=== PATIENT | female | born 1980 | race Caucasian/White ===

== ENCOUNTER 2020-10-28 07:17 | Inpatient (IN) | payer OTHER, SELFPAY ==
[2020-10-28] VITALS (14 sets, daily range): BP systolic 111–140; BP diastolic 73–93; PULSE 78–109; RESP 12–18; TEMP 35.9–36.9; O2SAT 99–100; BMI 21.7
--- NOTE | ~2020-10-28 | CT_ITS ---
EXAMINATION: CT ABDOMEN AND PELVIS WITH CONTRAST CLINICAL INFORMATION: Right lower quadrant pain. Evaluate for appendicitis. COMPARISON: None TECHNIQUE: Multidetector volumetric images were obtained from the superior aspect of the liver through the pubic symphysis following administration 85 mL of Omnipaque 350 intravenous contrast. Sagittal and coronal reformatted images were obtained on the technologist's workstation. Oral contrast: Yes This CT examination was performed using dose optimization techniques as appropriate, variously including the following: *Automated exposure control *Adjustment of mA and/or kV according to patient size (this includes techniques or standardized protocols for targeted exams where dose is matched to indication/reason for exam; i.e. extremities or head) *Use of iterative reconstruction technique DLP: 445 mGy-cm FINDINGS: LUNG BASES: The visualized lung bases are unremarkable. LIVER, GALLBLADDER, AND BILIARY TREE: The liver is normal in size, shape, and attenuation. There is a small 4 mm low-attenuation lesion high in the dome of the right lobe of the liver axial image 18 series 3. This is difficult to characterize due to small size but may represent a small cyst. No biliary ductal dilatation is present. The gallbladder is unremarkable with no evidence of radiopaque gallstones, gallbladder wall thickening, or obvious pericholecystic inflammatory changes. PANCREAS: Unremarkable. SPLEEN: Unremarkable. ADRENAL GLANDS: Unremarkable. KIDNEYS AND URETERS: The kidneys are normal in size, shape, and attenuation. No hydronephrosis, hydroureter, or calculi seen. No perinephric stranding. BLADDER: Unremarkable. GASTROINTESTINAL TRACT: The small and large bowel are unremarkable. The appendix is dilated measuring up to 10 mm and filled with fluid. There is stranding of the periappendiceal fat and trace ascites around the appendix. CT appearance is compatible with appendicitis. No evidence of perforation or abscess is seen. ABDOMINAL WALL: No significant hernia is appreciated. LYMPH NODES: Normal. VASCULAR: Unremarkable. PELVIC VISCERA: Unremarkable. There is trace fluid in the pelvis. OSSEOUS STRUCTURES: Unremarkable. CT/CT abdomen pelvis w con IMPRESSION: Acute appendicitis. Small amount of fluid in the pelvis. Findings were communicated to Dr. Hampton by telephone on 10/28/2020 at 11:00 AM.
--- NOTE | 2020-10-28 07:28 | ED_ITS ---
HPI - Abdominal Pain General Chief Complaint: Abdominal Pain Stated Complaint: ABD PAIN Time Seen by Provider: 10/28/20 07:20 Source: patient Mode of arrival: ambulatory Limitations: no limitations History of Present Illness HPI narrative: 40 yo female otherwise healthy woke up with chills, stomach cramps, diarrhea and nausea at 3am, notes the only thing unusual was she ate a poke bowl with fish, no prior episodes of this, no one else is sick at home MD elicited complaint: abdominal pain Pertinent past history: none Onset (ago): hour(s) (several ) Pain Consistency: constant Location: diffuse Severity: moderate Quality: cramping Radiation: none Migration to: no migration Exacerbating factors: movement Relieving factors: nothing Context: possible food poisoning Associated symptoms: nausea, diarrhea and chills Related Data Allergies Allergy/AdvReac Type Severity Reaction Status Date / Time No Known Allergies Allergy Verified 10/28/20 07:31 Review of Systems Review of Systems Constitutional : No Weight loss, No Fever, No Chills ENT/Mouth : No sore throat, No Rhinorrhea Eyes: No Swelling, No Redness Cardiovascular : No Chest Pain, No SOB, NoEdema Respiratory : No Cough, No Sputum, No Wheezing Gastrointestinal : Positive Nausea, no Vomiting, positive Diarrhea, positive abdominal Pain, No Hematochezia, No Melena Genitourinary : No Dysuria, No Urinary Frequency, No Hematuria, No Urgency Musculoskeletal : No joint pain, No Myalgias, No Joint Swelling Skin : No Skin Lesions, No rash Neuro : No Weakness, No Numbness, No Dizziness, No Headache Psych : No Anxiety/Panic, No Depression Heme/Lymph: No Bruising, No Lymphadenopathy Endocrine : No Polyuria, No Polydipsia All other systems reviewed and are negative. Physical Exam Vital Signs: Vital Signs: Last Vital Signs Temp 98.4 F 10/28/20 07:23 Pulse 78 10/28/20 07:23 Resp 18 10/28/20 07:23 BP 140/93 H 10/28/20 07:23 Pulse Ox 100 10/28/20 07:23 Body Mass Index 21.7 Appearance: Alert. Oriented X3. anxious, mild acute distress. Eyes: Pupils equal, round and reactive to light. ENT: Pharynx normal. Neck: Normal inspection. Neck supple. CVS: Normal heart rate and rhythm. Pulses normal. Respiratory: No respiratory distress. Breath sounds normal. Abdomen: Soft and moderate diffuse ttp Skin: Skin warm and dry. pale skin color. Normal skin turgor. Extremities: No lower extremity edema. No calf ttp Neuro: Oriented X 3. No motor deficit. No sensory deficit. Course Course Course Narrative: on recheck her nausea is very improved, no diarrhea on her repeat abdominal exam she seems to have more RLQ pain, CT scan to r/o appendicitis at this time + appendicitis Dr. Chavez to admit MDM - Abdominal Pain MDM Narrative Medical decision making narrative: 40 yo female with no PMH here with nausea abd ominal pain and diarrhea after eating a poke bowl yesterday, no localizing ttp at this time will need labs, IVF, IV zofran/Toradol, benadryl in case of histamine response suspect food toxicity or viral infection Lab Data Result diagrams: 10/28/20 07:44 10/28/20 07:44 Labs: Lab Results 10/28/20 10/28/20 10/28/20 Range/Units 07:44 07:44 07:44 WBC 14.0 H (4.8-10.8) X10*3/uL RBC 4.52 (4.20-5.50) X10*6/uL Hgb 13.4 (12.0-16.0) g/dl Hct 39.2 (37-47) % MCV 86.7 (80-98) fL MCH 29.6 (27.0-33.0) pg MCHC 34.2 (31.0-35.0) g/dl RDW 13.1 (11.0-16.0) % Plt Count 243 (160-400) X10*3/uL MPV 9.8 (9.4-12.3) fL Immature Gran % (Auto) 0.2 (0.0-0.4) % Neut % (Auto) 78.9 H (45-73) % Lymph % (Auto) 15.4 L (20-40) % [place] % (Auto) 4.9 (2-11) % Eos % (Auto) 0.2 (0-4) % Baso % (Auto) 0.4 (0-2) % Lymph # (Auto) 2.2 (1.2-4.9) X10*3/uL [place] # (Auto) 0.7 (0.1-1.2) X10*3/uL Eos # (Auto) 0.0 (0.0-0.4) X10*3/uL Baso # (Auto) 0.1 (0.0-0.2) X10*3/uL Abs Immat Gran (auto) 0.03 (0.00-0.03) X10*3/uL Absolute Neuts (auto) 11.1 H (2.0-8.3) X10*3/uL Absolute Nucleated RBC 0.000 (0.0-0.012) X10*3/uL Nucleated RBC % (auto) 0.0 (0.0-0.2) /100WBC Hold Blue Top SEE NOTE Sodium Cancelled Potassium Cancelled Chloride Cancelled Carbon Dioxide Cancelled Anion Gap Cancelled BUN Cancelled Creatinine Cancelled Estim Creat Clear Calc Cancelled Estimated GFR Cancelled Random Glucose Cancelled Calcium Cancelled Magnesium Cancelled Total Bilirubin Cancelled Direct Bilirubin Cancelled AST Cancelled ALT Cancelled Alkaline Phosphatase Cancelled Total Protein Cancelled Albumin Cancelled Lipase (8-78) U/L Urine Color Urine Appearance Urine pH (5.0-8.0) Ur Specific [place] (1.005-1.025) Urine Protein (NEG-TRACE) MG/DL Urine Glucose (UA) (NEG) MG/DL Urine Ketones (NEG) MG/DL Urine Blood (NEG) Urine Nitrite (NEG) Ur Leukocyte Esterase (NEG) Urine RBC (0) /HPF Urine WBC (0-4) /HPF Ur Squamous Epith Cells /LPF Urine Bacteria /LPF Urine Test (NEGATIVE) COVID-19 (JANIE) (Negative) COVID-19 Clin Com 10/28/20 10/28/20 10/28/20 Range/Units 07:44 07:59 07:59 WBC (4.8-10.8) X10*3/uL RBC (4.20-5.50) X10*6/uL Hgb (12.0-16.0) g/dl Hct (37-47) % MCV (80-98) fL MCH (27.0-33.0) pg MCHC (31.0-35.0) g/dl RDW (11.0-16.0) % Plt Count (160-400) X10*3/uL MPV (9.4-12.3) fL Immature Gran % (Auto) (0.0-0.4) % Neut % (Auto) (45-73) % Lymph % (Auto) (20-40) % [place] % (Auto) (2-11) % Eos % (Auto) (0-4) % Baso % (Auto) (0-2) % Lymph # (Auto) (1.2-4.9) X10*3/uL [place] # (Auto) (0.1-1.2) X10*3/uL Eos # (Auto) (0.0-0.4) X10*3/uL Baso # (Auto) (0.0-0.2) X10*3/uL Abs Immat Gran (auto) (0.00-0.03) X10*3/uL Absolute Neuts (auto) (2.0-8.3) X10*3/uL Absolute Nucleated RBC (0.0-0.012) X10*3/uL Nucleated RBC % (auto) (0.0-0.2) /100WBC Hold Blue Top Sodium 138 Potassium 4.6 Chloride 106 Carbon Dioxide 20 L Anion Gap 17 BUN 9 Creatinine 0.70 Estim Creat Clear Calc 109.9 Estimated GFR > 60 Random Glucose 93 Calcium 9.0 Magnesium 1.8 Total Bilirubin 0.6 Direct Bilirubin < 0.2 AST 19 ALT 11 Alkaline Phosphatase 51 Total Protein 7.7 Albumin 4.5 Lipase 17 (8-78) U/L Urine Color YELLOW Urine Appearance CLEAR Urine pH 5.5 (5.0-8.0) Ur Specific [place] >= 1.030 H (1.005-1.025) Urine Protein NEG (NEG-TRACE) MG/DL Urine Glucose (UA) NEG (NEG) MG/DL Urine Ketones >=80 (NEG) MG/DL Urine Blood 1+ H (NEG) Urine Nitrite NEG (NEG) Ur Leukocyte Esterase NEG (NEG) Urine RBC 1-4 (0) /HPF Urine WBC 0 (0-4) /HPF Ur Squamous Epith Cells 2+ /LPF Urine Bacteria TRACE /LPF Urine Test NEGATIVE (NEGATIVE) COVID-19 (JANIE) Negative (Negative) COVID-19 Clin Com See Note Critical Care Time Critical Care Time Critical Care Time: Yes Total Critical Care Time: 35 Attestation: medical consult, IV abx, admit for appendicitis I attest to this time spent taking care of the patient Discharge Plan Discharge Clinical Impression: Acute appendicitis Qualifiers: Acute appendicitis type: with localized peritonitis Appendicitis gangrene presence: without gangrene Appendicitis perforation presence: without perforation Appendicitis abscess presence: without abscess Qualified Code(s): K35.30 - Acute appendicitis with localized peritonitis, without perforation or gangrene Patient Disposition: Admitted As Inpatient [facility] [place] Past Medical History Attestation statement: The following information was validated with the patient. Medical History No active medical problems Social History Social History (Updated 10/28/20 @ 07:40 by Hallie Hampton DO) Alcohol intake: never Smoking Status: Never smoker Use of substances other than those prescribed or required for medical reasons: No Advance Directives: No Advance Directives Information Provided: Yes
[2020-10-28 07:48] LABS: MANUAL DIFF FLAG NO
[2020-10-28 07:49] LABS: Basophils Absolute Auto 0.1 X10*3/uL (0.0-0.2); Basophils Percent Auto 0.4 % (0-2); Eosinophils Percent Auto 0.2 % (0-4); Hematocrit 39.2 % (37-47); Hemoglobin 13.4 g/dl (12.0-16.0); Imm Gran Abs Auto 0.03 X10*3/uL (0.00-0.03); Imm Gran Pct Auto 0.2 % (0.0-0.4); Lymphocytes Absolute Auto 2.2 X10*3/uL (1.2-4.9); Lymphocytes Percent Auto 15.4 % (20-40); Mean Corpuscular HGB Conc 34.2 g/dl (31.0-35.0); Mean Corpuscular Hemoglobin 29.6 pg (27.0-33.0); Mean Corpuscular Volume 86.7 fL (80-98); Mean Platelet Volume 9.8 fL (9.4-12.3); Monocytes Absolute Auto 0.7 X10*3/uL (0.1-1.2); Monocytes Percent Auto 4.9 % (2-11); Neutrophils Absolute Auto 11.1 X10*3/uL (2.0-8.3); Neutrophils Percent Auto 78.9 % (45-73); Platelet Count 243 X10*3/uL (160-400); Red Blood Count 4.52 X10*6/uL (4.20-5.50); Red Cell Distribution Width 13.1 % (11.0-16.0)
[2020-10-28] MEDS: diphenhydrAMINE HCL 50 MG/ML VIAL 25 MG IVPUSH (08:01)
[2020-10-28] MEDS: Ketorolac Tromethamine 30 MG/ML VIAL IVPUSH (08:01)
[2020-10-28] MEDS: 0.9 % Sodium Chloride 1,000 ML 999 ML IVCONT (08:01)
[2020-10-28] MEDS: ondansetron HCL 4 MG/2 ML VIAL IVPUSH (08:01)
[2020-10-28 08:07] LABS: Glucose Urine UA NEG (NEG); Leukocyte Esterase Urine NEG (NEG); Nitrite Urine NEG (NEG); PH 5.5 (5.0-8.0); Specific Gravity - Urine >= 1.030 (1.005-1.025); Urine Blood 1+ (NEG); Urine Ketones >=80 MG/DL (NEG); Urine Protein NEG (NEG-TRACE)
[2020-10-28 08:16] LABS: Appearance Urine CLEAR; Color Urine YELLOW
[2020-10-28 08:17] LABS: Bacteria Urine TRACE /LPF; Squamous Epithelial Cell Urine 2+ /LPF; WBC Urine 0 /HPF (0-4)
[2020-10-28 08:24] LABS: COVID-19 Test Negative (Negative)
[2020-10-28 08:28] LABS: Alanine Aminotransferase 11 U/L (0-31); Albumin Level 4.5 g/dL (3.5-5.0); Alkaline Phosphatase 51 U/L (39-117); Anion Gap 17 (12-20); Aspartate Amino Transferase 19 U/L (5-31); Bilirubin Direct < 0.2 mg/dL (0.0-0.5); Bilirubin Total 0.6 mg/dL (0.0-1.0); Blood Urea Nitrogen 9 mg/dL (9-16); Carbon Dioxide 20 mmol/L (22-29); Chloride 106 mmol/L (96-108); Creatinine Clr Calc Pharmacy 109.9; Estimated Glomerular Filt Rate > 60; Glucose Random 93 mg/dL (60-115); Lipase 17 U/L (8-78); Magnesium 1.8 mg/dL (1.6-2.6); Potassium 4.6 mmol/L (3.3-5.1); Sodium 138 mmol/L (135-145); Total Protein 7.7 g/dL (6.5-8.0)
--- NOTE | 2020-10-28 08:40 | PC.NURSE ---
Pt reports moderate relief of symptoms with treatments provided thus far, c/o 10/17 abdominal pain. States her nausea is fully relieved.
[2020-10-28 09:00] LABS: Urine Pregnancy NEGATIVE (NEGATIVE)
[2020-10-28 09:01] LABS: UPreg QC Valid YES
[2020-10-28] MEDS: iohexoL 350 MG/ML 100 ML INFUS..BTL IV (10:41)
--- NOTE | 2020-10-28 11:30 | P.HPGS_ITS ---
History of Present Illness History of Present Illness Date of Service: 10/28/20 Chief complaint: ABD PAIN Narrative: Brigette Dejesus is a 40 year old female presenting with complaints of abdominal pain in the right lower quadrant which began yesterday. She describes the pain as cramping associated with chills and diarrhea. Pain became more severe approximately 03:00 this morning and she subsequently presented to the emergency department. She denies a previous history of similar abdominal pain. She notes the pain increases when pressure is applied to the abdomen and then released. Her past history is significant for polycystic ovary disease. She denies previous abdominal surgeries. Workup in the [place] [address] of the abdomen and pelvis revealed thickening of the appendix with some periappendiceal inflammation and fluid. There is no evidence of perforation. Review of Systems Constitutional: Constitutional: Reports chills, Denies fever(s), Denies headache(s) and Reports poor appetite ENT: Denies dizziness and Denies headache(s) Cardiovascular: Cardiovascular: Denies chest pain, Denies rapid heart rate, Denies palpitations and Denies slow heart rate Respiratory: Respiratory: Denies chest congestion, Denies cough, Denies pain on inspiration and Denies wheezing Gastrointestinal: Gastrointestinal: Reports abdominal pain, Denies bloating, Reports change in stool character, Denies constipation, Reports diarrhea, Denies nausea, Denies vomiting and Denies hematemesis Musculoskeletal: Musculoskeletal: Denies back pain, Denies arthralgias, Denies joint swelling and Denies numbness Integumentary/Breasts: Skin/Breast: Denies change in pigmentation, Denies erythema and Denies rash Neurologic: Denies confusion, Denies dizziness, Denies headache(s) and Denies numbness Psychiatric: Psychiatric: Denies anxiety, Denies confusion and Denies depression Endocrine: Endocrine: Denies palpitations Hematologic/Lymphatic: Hematologic/Lymphatic: Denies easy bleeding, Denies easy bruising and Denies lymphadenopathy Allergic/Immunologic: Allergic/Immunologic: Denies wheezing PMFSH Past Medical History Medical History (Updated 10/28/20 @ 11:32 by Roosevelt Chavez MD) No active medical problems Polycystic ovary disease Social History Social History Alcohol intake: never Smoking Status: Never smoker Use of substances other than those prescribed or required for medical reasons: No Advance Directives: No Advance Directives Information Provided: Yes Meds Allergies Allergy/AdvReac Type Severity Reaction Status Date / Time No Known Allergies Allergy Verified 10/28/20 07:31 Active Medications: Current Medications Generic Name Dose Route Start Last Admin Trade Name Freq PRN Reason Stop Dose Admin Piperacillin Sod/Tazobactam 50 mls @ 100 mls/hr 10/28/20 11:01 Sod 3.375 gm/ Sodium Chloride IV 10/28/20 11:30 ONCE ONE Physical Exam Vital Signs: Vital Signs: Last Vital Signs Temp 98.4 F 10/28/20 07:23 Pulse 78 10/28/20 07:23 Resp 18 10/28/20 07:23 BP 140/93 H 10/28/20 07:23 Pulse Ox 100 10/28/20 07:23 Body Mass Index 21.7 Const: General: cooperative, healthy appearing, comfortable, no acute distress, well developed, alert, awake and Physically active; No confusion Orientation/consciousness: No confusion HENMT: Head: Yes normocephalic and Yes atraumatic Eyes: Sclerae: sclerae normal EOM: EOMs intact bilaterally Resp: Effort & Inspection: normal respiratory effort, no stridor and not tachypneic Auscultation: no wheezes Cardio: Jugular venous distension: no JVD Rate: regular rate Rhythm: regular rhythm GI: Inspection: Yes normal to inspection Palpation (GI): Soft to palpation and Tenderness to palpation present (GI) in the RLQ, Rey's sign positive and with rebound tenderness Skin: General skin exam: no rashes or lesions noted and dry skin Neuro: General: No confusion Extrem: General: Yes no clubbing, cyanosis or edema Results Results Labs: Short CBC 10/28/20 Range/Units 07:44 WBC 14.0 H (4.8-10.8) X10*3/uL Hgb 13.4 (12.0-16.0) g/dl Hct 39.2 (37-47) % Plt Count 243 (160-400) X10*3/uL BMP 10/28/20 10/28/20 07:44 07:44 Sodium Cancelled 138 Potassium Cancelled 4.6 Chloride Cancelled 106 Carbon Dioxide Cancelled 20 L BUN Cancelled 9 Creatinine Cancelled 0.70 Calcium Cancelled 9.0 Liver Function 10/28/20 10/28/20 Range/Units 07:44 07:44 Total Bilirubin Cancelled 0.6 Direct Bilirubin Cancelled < 0.2 AST Cancelled 19 ALT Cancelled 11 Alkaline Phosphatase Cancelled 51 Albumin Cancelled 4.5 Urine 10/28/20 Range/Units 07:59 Urine Color YELLOW Urine Appearance CLEAR Urine pH 5.5 (5.0-8.0) Ur Specific [place] >= 1.030 H (1.005-1.025) Urine Protein NEG (NEG-TRACE) MG/DL Urine Glucose (UA) NEG (NEG) MG/DL Urine Test NEGATIVE (NEGATIVE) Assessment and Plan (1) Acute appendicitis: Qualifiers: Acute appendicitis type: with localized peritonitis Appendicitis abscess presence: without abscess Appendicitis gangrene presence: without gangrene Appendicitis perforation presence: without perforation Qualified Code(s): K35.30 - Acute appendicitis with localized peritonitis, without perfora tion or gangrene Status: Acute 40-year-old female patient presenting with complaints of abdominal pain in the right lower quadrant associated with abdominal cramping, chills, and diarrhea. [place] [address] findings consistent with acute appendicitis. On examination the patient is tender in the right lower quadrant with rebound tenderness. Findings are suggestive of acute appendicitis without an abscess. We discussed treatment with IV antibiotics verses laparoscopic appendectomy. After discussion with the patient and her regarding the procedure, risks, and alternatives, she consents to the laparoscopic or possible open appendectomy. She will be added onto the operative schedule for today.
[2020-10-28] MEDS: Piperacillin Sodium/Tazobactam 3.375 GM in 0.9 % Sodium Chloride 50 ML IV (11:32)
--- NOTE | 2020-10-28 11:51 | MHC.SHP ---
Pre-Procedural Eval Section A The patient is an INPATIENT: No Changes since office visit: Yes Patient answered all questions; No Cold of Flu in the past 2 weeks, No New Medical Problems and No Changes in Medication The History & Physical has been completed within 30 days and I have reviewed it.: Yes Section B Chief Complaint: ABD PAIN Allergies: Allergies Allergy/AdvReac Type Severity Reaction Status Date / Time No Known Allergies Allergy Verified 10/28/20 07:31 Plan Diagnosis/Plan: Unchanged I have reviewed the history and physical and performed a pertinent physical examination on my patient. No changes have occurred unless specified.
[2020-10-28] MEDS: Lactated Ringers 1,000 ML 100 ML IVCONT ×2 (12:07→16:35)
--- NOTE | 2020-10-28 12:15 | PC.NURSE ---
Report given to OR nurse. Pt ready for transport.
--- NOTE | 2020-10-28 13:09 | HO.ANESPROP2 ---
[facility] Active Problems Active Problems: All Active Problems (Updated 10/28/20 @ 11:32 by Roosevelt Chavez MD) Acute appendicitis (Acute) Past Medical History Medical History No active medical problems Polycystic ovary disease Social History Social History Alcohol intake: never Smoking Status: Never smoker Use of substances other than those prescribed or required for medical reasons: No Advance Directives: No Advance Directives Information Provided: Yes Meds Allergies Allergy/AdvReac Type Severity Reaction Status Date / Time No Known Allergies Allergy Verified 10/28/20 07:31 Active Medications: Current Medications Generic Name Dose Route Start Last Admin Trade Name Freq PRN Reason Stop Dose Admin Lactated Ringer's 1,000 mls @ 100 mls/hr 10/28/20 12:00 10/28/20 12:07 Lr IVCONT 100 mls/hr .Q10H JAMES Administration Exam Exam Date and Time: October 28, 2020 1309 Height,Weight and Vital Signs: Height 5 ft 8 in Weight 65 kg Last Vital Signs Temp 98.4 F 10/28/20 07:23 Pulse 95 10/28/20 11:32 Resp 16 10/28/20 11:32 BP 119/84 10/28/20 11:32 Pulse Ox 99 10/28/20 11:32 Pertinent Lab Results Pertinent Lab Results: Laboratory Tests 10/28/20 10/28/20 10/28/20 07:44 07:44 07:44 WBC 14.0 H RBC 4.52 Hgb 13.4 Hct 39.2 MCV 86.7 MCH 29.6 MCHC 34.2 RDW 13.1 Plt Count 243 MPV 9.8 Immature Gran % (Auto) 0.2 Neut % (Auto) 78.9 H Lymph % (Auto) 15.4 L [place] % (Auto) 4.9 Eos % (Auto) 0.2 Baso % (Auto) 0.4 Lymph # (Auto) 2.2 [place] # (Auto) 0.7 Eos # (Auto) 0.0 Baso # (Auto) 0.1 Abs Immat Gran (auto) 0.03 Absolute Neuts (auto) 11.1 H Absolute Nucleated RBC 0.000 Nucleated RBC % (auto) 0.0 Hold Blue Top SEE NOTE Sodium Cancelled Potassium Cancelled Chloride Cancelled Carbon Dioxide Cancelled Anion Gap Cancelled BUN Cancelled Creatinine Cancelled Estim Creat Clear Calc Cancelled Estimated GFR Cancelled Random Glucose Cancelled Calcium Cancelled Magnesium Cancelled Total Bilirubin Cancelled Direct Bilirubin Cancelled AST Cancelled ALT Cancelled Alkaline Phosphatase Cancelled Total Protein Cancelled Albumin Cancelled Lipase Urine Color Urine Appearance Urine pH Ur Specific [place] Urine Protein Urine Glucose (UA) Urine Ketones Urine Blood Urine Nitrite Ur Leukocyte Esterase Urine RBC Urine WBC Ur Squamous Epith Cells Urine Bacteria Urine Test COVID-19 (JANIE) COVID-19 Eterniam Com 10/28/20 10/28/20 10/28/20 07:44 07:59 07:59 WBC RBC Hgb Hct MCV MCH MCHC RDW Plt Count MPV Immature Gran % (Auto) Neut % (Auto) Lymph % (Auto) [place] % (Auto) Eos % (Auto) Baso % (Auto) Lymph # (Auto) [place] # (Auto) Eos # (Auto) Baso # (Auto) Abs Immat Gran (auto) Absolute Neuts (auto) Absolute Nucleated RBC Nucleated RBC % (auto) Hold Blue Top Sodium 138 Potassium 4.6 Chloride 106 Carbon Dioxide 20 L Anion Gap 17 BUN 9 Creatinine 0.70 Estim Creat Clear Calc 109.9 Estimated GFR > 60 Random Glucose 93 Calcium 9.0 Magnesium 1.8 Total Bilirubin 0.6 Direct Bilirubin < 0.2 AST 19 ALT 11 Alkaline Phosphatase 51 Total Protein 7.7 Albumin 4.5 Lipase 17 Urine Color YELLOW Urine Appearance CLEAR Urine pH 5.5 Ur Specific [place] >= 1.030 H Urine Protein NEG Urine Glucose (UA) NEG Urine Ketones >=80 Urine Blood 1+ H Urine Nitrite NEG Ur Leukocyte Esterase NEG Urine RBC 1-4 Urine WBC 0 Ur Squamous Epith Cells 2+ Urine Bacteria TRACE Urine Test NEGATIVE COVID-19 (JANIE) Negative COVID-19 Clin Com See Note Airway Mallampati Class: I TM Dist: >3cm Neck ROM: Full
--- NOTE | 2020-10-28 13:28 | P.OP_ITS ---
Operative Note Operative Note Date of Service: 10/28/20 Narrative: Preoperative diagnosis: Acute appendicitis Postoperative diagnosis: Same Procedure: Laparoscopic appendectomy Surgeon: Roosevelt Chavez MD Thermoscrew Operator: none Anesthesia: General endotracheal Indications for procedure: 40-year-old female patient presenting with complaints of abdominal pain in the right lower quadrant found to have an elevated WBC of 14,[address] which revealed a thickened appendix with inflam matory changes surrounding it suggestive of acute appendicitis. Operative findings: Mildly inflamed appendix with no evidence of perforation or abscess formation Specimen: Appendix Estimated blood loss: 5 Complications: None Procedure details: Patient was brought to the OR and placed in a supine position. After administering general anesthesia the patient's abdomen was prepped with ChloraPrep and draped in a sterile fashion. A surgical time-out was called and consent confirmed. Patient received preoperative antibiotics and Venodyne boots were in place. Local anesthesia consisting of 0.75% Sensorcaine with epinephrine was infiltrated in periumbilical region. A 5 mm incision was made below the umbilicus and carried down through subcutaneous tissue. A Veress needle was then inserted while elevating abdominal cavity with towel clips. After a positive drop test the abdomen was insufflated to a pressure of 15 mm of mercury. The Veress needle was removed and a 5 mm trocar inserted. The camera was then inserted in the abdomen explored. A 2nd 5 mm trocars placed in the lower midline. A 12 mm trocar was then placed in the left lower quadrant. The patient was then placed in a Trendelenburg position and rotated to the left. The appendix was identified in the right lower quadrant and brought up using blunt dissecting clamps. The mesentery of the appendix was then divided using the LigaSure. The appendiceal artery was cauterized and divided using the LigaSure. Dissection was continued down to the base of the cecum. An Endo-MAGALI stapler with a purple reload was then used to divide the appendix at the base with the cecum. The appendix was then placed in Endo-Catch bag and brought out through the left lower quadrant incision. The abdomen was then irrigated with saline solution and suctioned dry. Wounds were checked for hemostasis. CO2 was then evacuated from the abdominal cavity and all trocars removed. Fascia was closed in the left lower quadrant incision using a [id number] 0 Polysorb suture. Skin was closed at all incisions using a subcuticular 4-0 Polysorb suture. Steri-Strips 2 x 2 gauze and Tegaderm were then applied. The patient tolerated the procedure well. Sponge, instrument, needle counts reported as correct. The patient was transferred to PACU in stable condition.
[2020-10-28] MEDS: fentaNYL citrate/PF 100 MCG/2 ML VIAL 50 MCG IVPUSH (13:45)
[2020-10-28] MEDS: oxyCODONE HCl Immed Release 5 MG TABLET 10 MG PO (14:30)
[2020-10-28] MEDS: 0.9 % Sodium Chloride Flush 3 ML SYRINGE IVFLUSH ×2 (16:42→23:30)
[2020-10-28] MEDS: Acetaminophen 325 MG TABLET 650 MG PO (17:38)
[2020-10-28] MEDS: Escitalopram Oxalate 10 MG TABLET PO (20:38)
[2020-10-28] MEDS: oxyCODONE HCl Immed Release 5 MG TABLET PO (23:29)
[2020-10-29] MEDS: Lactated Ringers 1,000 ML 100 ML IVCONT (02:30)
[2020-10-29 04:00] VITALS: BP 113/64; PULSE 98; RESP 16; TEMP 36.2; O2SAT 100
[2020-10-29] MEDS: Morphine Sulfate 2 MG/ML CARTRIDGE 4 MG IVPUSH (05:49)
[2020-10-29 07:45] VITALS: BP 115/79; PULSE 90; RESP 15; TEMP 36.2; O2SAT 100
--- NOTE | 2020-10-29 08:50 | MHC.CM.PN ---
PATIENT IS DISCHARGED HOME WITH NO NEED FOR SERVICES. SPOUSE TO TRANSPORT. RN AWARE OF PLAN.
--- NOTE | 2020-10-29 10:47 | PM.PNGS ---
Subjective Subjective Date of Service: 10/29/20 <Torie Myrick PA-C - Last Filed: 10/29/20 10:50> 10/29/20 <Roosevelt Chavez MD - Last Filed: 10/29/20 15:56> Interval history: Had some R shoulder pain which resolved and then sharp incisional pain this morning which improved with anagelsics. She feels well. She is tolerating a solid diet. She has been OOB and ambulating. <Torie Myrick PA-C - Last Filed: 10/29/20 10:50> Physical Exam Vital Signs: Vital Signs: Last Vital Signs Temp 97.2 F 10/29/20 07:45 Pulse 90 10/29/20 07:45 Resp 15 10/29/20 07:45 BP 115/79 10/29/20 07:45 Pulse Ox 100 10/29/20 07:45 Body Mass Index 21.7 <Torie Myrick PA-C - Last Filed: 10/29/20 10:50> Const: General: comfortable and no acute distress <Torie Myrick PA-C - Last Filed: 10/29/20 10:50> Orientation/consciousness: patient oriented x3 <Torie Myrick PA-C - Last Filed: 10/29/20 10:50> Eyes: Sclerae: sclerae normal <Torie Myrick PA-C - Last Filed: 10/29/20 10:50> Resp: Effort & Inspection: normal respiratory effort <Torie Myrick PA-C - Last Filed: 10/29/20 10:50> Cardio: Rate: regular rate <Torie Myrick PA-C - Last Filed: 10/29/20 10:50> GI: Inspection: No distended and Yes incision (dressings clean) <LUI Vargas Last Filed: 10/29/20 10:50> Palpation (GI): Soft to palpation and Tenderness to palpation present (GI) (mild incisional) <LUI Vargas Last Filed: 10/29/20 10:50> Percussion: Yes normal to percussion <LUI Vargas Last Filed: 10/29/20 10:50> Skin: General skin exam: no rashes or lesions noted <Torie Myrick PA-C - Last Filed: 10/29/20 10:50> Neuro: General: patient oriented x3 <Torie Myrick PA-C - Last Filed: 10/29/20 10:50> Extrem: General: Yes no clubbing, cyanosis or edema <Torie Myrick PA-C - Last Filed: 10/29/20 10:50> Progress Note: A&P Assessment and plan (1) Acute appendicitis: Problem details: s/p lap appy, POD #1 <Torie Myrick PA-C - Last Filed: 10/29/20 10:50> Status: Acute <Torie Myrick PA-C - Last Filed: 10/29/20 10:50> Assessment and Plan: Doing well post op, comfortable and tolerating solid diet. VSS. Abd exam benign. Dressings c/d/i. Stable for d/c to home today. F/u in office with Dr. Chavez in 1 week. <Torie Myrick PA-C - Last Filed: 10/29/20 10:50> Patient reported some sharp pain this morning which improved after taking morphine. She feels much improved now. She is tolerating a diet and denies nausea or vomiting. Agree with the above assessment and plan. Discharged home with follow-up in the office in approximately 1 week. She should call sooner for fever, chills, nausea, vomiting, problems with the incisions or other concerns. <Roosevelt Chavez MD - Last Filed: 10/29/20 15:56> Fall Risk Details Current Medications: Current Medications Generic Name Dose Route Start Last Admin Trade Name Freq PRN Reason Stop Dose Admin Acetaminophen 650 mg 10/28/20 15:37 10/28/20 17:38 Acetaminophen 325 Mg Tablet PO 650 mg Q6H PRN Administration Pain, Mild (Pain Scale 1-3) Escitalopram Oxalate 10 mg 10/28/20 21:00 10/28/20 20:38 Escitalopram Oxalate 10 Mg Tablet PO 10 mg BEDTIME JAMES Administration Lactated Ringer's 1,000 mls @ 100 mls/hr 10/28/20 12:00 10/29/20 08:36 Lr IVCONT Not Given .Q10H JAMES Morphine Sulfate 4 mg 10/28/20 15:37 10/29/20 05:49 Morphine Sulfate 2 Mg/Ml Cartridge IVPUSH 4 mg Q3H PRN Administration Pain, Severe (Pain Scale 7-10) Ondansetron HCl 4 mg 10/28/20 15:37 Ondansetron Hcl 4 Mg/2 Ml Vial IVPUSH Q8H PRN Nausea and Vomiting Oxycodone HCl 5 mg 10/28/20 15:37 10/28/20 23:29 Oxycodone Hcl Immed Release 5 Mg Tablet PO 5 mg Q6H PRN Administration Pain, Moderate (Pain Scale 4-6 Sodium Chloride 3 ml 10/28/20 16:00 10/29/20 08:36 0.9 % Sodium Chloride Flush 3 Ml Syringe IVFLUSH Not Given QSHIFT JAMES Zolpidem Tartrate 5 mg 10/28/20 15:37 Zolpidem Tartrate 5 Mg Tablet PO BEDTIME PRN Insomnia <Torie Myrick PA-C - Last Filed: 10/29/20 10:50> Time Spent With Patient Time: Total time spent is greater than 50% in coordination of care (as documented) at patient's floor/unit and/or counseling patient: <Torie Myrick PA-C - Last Filed: 10/29/20 10:50> Time with patient: 15 - 24 minutes <Torie Myrick PA-C - Last Filed: 10/29/20 10:50>
[2020-10-29 11:38] VITALS: BP 137/80; PULSE 84; RESP 16; TEMP 36.7; O2SAT 100
--- NOTE | 2020-10-30 13:18 | PM.DS ---
DS: Providers Provider Date of Service: 10/30/20 Date of admission: 10/28/20 13:27 Primary care physician: Unknown Physician DS: Diagnosis Discharge Diagnosis (1) Acute appendicitis: Status: Acute Problem details: s/p lap appy, POD #1 (2) S/P laparoscopic appendectomy: Status: Acute DS: Medications Discharge Medications Home Medications: Home Medications Medication Instructions Recorded Confirmed citalopram [Celexa] 20 mg PO BEDTIME 10/28/20 10/28/20 Previous Rx's Medication Instructions Recorded oxycodone 5 mg PO Q6H PRN #15 tab 10/29/20 DS: Summary Hospital Course Hospital Course: BRIEF HPI: Brigette Dejesus is a 40 year old female presenting with complaints of abdominal pain in the right lower quadrant which began yesterday. She describes the pain as cramping associated with chills and diarrhea. Pain became more severe approximately early the following morning and she subsequently presented to the emergency department. She denies a previous history of similar abdominal pain. She notes the pain increases when pressure is applied to the abdomen and then released. Her past history is significant for polycystic ovary disease. She denies previous abdominal surgeries. Workup in [place] [address] of the abdomen and pelvis revealed thickening of the appendix with some periappendiceal inflammation and fluid, without evidence of perforation. HOSPITAL COURSE: On 10/28/20, a laparoscopic appendectomy was performed by Dr. Chavez without complication. The patient tolerated the procedure well and was admitted to the medical/surgical floor for observation. The patient had an uncomplicated recovery course. She was doing well on post op day #1 and was tolerating a solid diet without N/V, pain was well controlled on PO analgesics and she was ambulating without difficulty. Her abdomen was benign with c/d/i dressings and vitals were stable. She felt ready for discharge. She was discharged to home on 10/29/20 in stable condition. She is to follow up with Dr. Chavez in office in 1 week. Status at Discharge Functional status at discharge: independent ambulation Overall status at discharge: patient is progressing back to baseline Time Spent with Patient Time attestation: Total time spent providing and/or coordinating discharge services: Discharge coordination time: Less than 30 minutes Physical Exam Vital Signs: Vital Signs: Last Vital Signs Temp 98.1 F 10/29/20 11:38 Pulse 84 10/29/20 11:38 Resp 16 10/29/20 11:38 BP 137/80 10/29/20 11:38 Pulse Ox 100 10/29/20 11:38 Body Mass Index 21.7 Const: General: comfortable, no acute distress and alert Orientation/consciousness: patient oriented x3 Eyes: Sclerae: sclerae normal Resp: Effort & Inspection: normal respiratory effort Cardio: Rate: regular rate GI: Inspection: No distended and Yes incision (dressings c/d/i) Palpation (GI): Soft to palpation, Tenderness to palpation present (GI) (mild incisional), no guarding, not rigid and No Rebound tenderness present Percussion: Yes normal to percussion Skin: General skin exam: no rashes or lesions noted Neuro: General: patient oriented x3 Extrem: General: Yes no clubbing, cyanosis or edema DS: Data Data Completed and Pending Completed studies during hospitalization [Text1]: 10/28/20 13:14 Surgical [PTH] Routine Vermiform appendix, appendectomy: Acute appendicitis and periappendicitis. Procedures Resection of Appendix, Percutaneous Endoscopic Approach (10/28/20) Discharge Plan Discharge Patient Disposition: Home, Self-Care Referrals: Roosevelt Chavez MD [Physician] - 1 Week Physician,Unknown [Primary Care Provider] - Discharge Medications: New oxycodone 5 mg tablet 5 mg PO Q6H PRN (Reason: pain) Qty: 15 RF: 0 Continued citalopram [Celexa] 20 mg Tablet 20 mg PO BEDTIME RF: 0 Discharge Orders: Discharge Order (Routine); Ordered 10/29/20 Ordered By: Roosevelt Chavez Diet: advance to usual diet Activity on Discharge: No heavy lifting Stand Alone Forms: Patient Portal Discharge page Activity Restrictions/Additional Instructions: If the incision area is tender, you may apply an ice pack for short intervals (No more than 20 minutes on, followed by at least 20 minutes off). Do not apply heat. Do not use creams, lotions, or topical antibiotics unless instructed to do so by your surgeon. These can cause infection or allergic reaction. Ok to shower. Remove clear dressings 3 days following your procedure. You have steri strips (small white cloth strips) covering your incision- these will fall off ~1 week. Call Your Doctor If: -Your temperature exceeds 101.5? F -You experience excessive pain or swelling -You have an unexpected reaction to medication -You have excessive bleeding -You experience continued vomiting/nausea -Your incision begins to separate -Your incision shows signs of infection such as increased redness, swelling, excessive pain, drainage (light blood or clear fluid is normal) or heat Care Plan Goals: Resume regular diet Avoid lifting > 10 pounds Follow up in office in one week Health Concerns: Acute appendicitis Plan of Treatment: Laparoscopic appendectomy Discharge Date/Time: 10/29/20 13:30
== END 2020-10-29 13:30 | disposition home or self-care (01) | DRG 234 ==
LOC: HO.ED 12:24 → HO.S3 13:58
PROVIDERS: Admitting Provider Surgery; Emergency Provider Emergency Medicine; Visit Provider Surgery
PROC: 0DTJ4ZZ Resection of Appendix, Percutaneous Endoscopic Approach (ICD-10-PCS; CPT 44970; principal; 2020-10-28 12:00)
DX: K35.30 Acute appendicitis with localized peritonitis, without perforation or gangrene (principal); Z20.822 Contact with and (suspected) exposure to COVID-19
CPT/HCPCS: 44970; 36415; 74177; 80048; 80076; 81001; 81025; 83690; 83735; 85025; 87635; 88304; 96361; 96365; 96375; 99285; 99291; J1100; J1200; J1885; J2250; J2270; J2405; J2543; J3010; Q9967

== ENCOUNTER → 2020-11-06 15:00 | Outpatient (BNVA) | payer OTHER, SELFPAY | PROVIDERS: PCP Internal Medicine Sports Medicine; Visit Provider Surgery ==